=== PATIENT | female | born 1980 | race Hispanic/Latino ===

== ENCOUNTER 2025-05-13 13:24 | Emergency (ER) | payer BC ==
[~2025-05-13] VITALS: Ht 170.2 cm; Wt 93.0 kg
--- NOTE | 2025-05-13 13:50 | EKG ---
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
--- NOTE | 2025-05-13 13:53 | ERN ---
ED Note History of Present Illness Stated Complaint: VAGINAL BLEEDING Chief Complaint: Vaginal Problems/Bleeding Time Seen by MD: 13:26 Time Seen by Midlevel: 13:30 Dictation: 44-year-old female with a history of heavy menses coming in with complaints in the vaginal bleeding. Patient states her doctor put her on the Depo shot two weeks ago, states she has been bleeding but today she has a more than usual. Patient states since this morning she has a change her pads 5 times. Patient states he feels lightheaded, dizzy and has palpitations. Allergies: Coded Allergies: No Known Allergies (Unverified Allergy, Unknown, 05/13/25) Past Medical History Past Medical History: Anemia, Diabetes-Type II Surgical History: None Review of System Dictation Constitutional: Negative for fever,chills, and weight loss Eyes: Negative for injury, pain,redness, and discharge ENT: Negative for injury,pain or swelling Cardiovascular: Negative for chest pain, palpitations, and edema Respiratory: Negative for shortness of breath, cough, and wheezing, Abdomen/GI: Negative for abdominal pain, nausea, vomiting, diarrhea, and constipation Back: Negative for injury and pain : Negative for injury, complaining of vaginal bleeding MS/Extremity: Negative for injury and deformity Skin: Negative for rash, and discoloration Neuro: Negative for headache, weakness, numbness, tingling, and seizure Psych: Negative for suicide ideation, homicidal ideation, and hallucinations Review of Systems: was completed Initial Vital Sign VS Vital Signs Date Time Temp Pulse Resp B/P (MAP) Pulse Ox O2 Delivery O2 Flow Rate FiO2 05/13/25 13:25 98.1 112 20 147/85 98 Room Air 05/13/25 13:55 0 21 Physical Exam Dictation General: awake, alert, NAD Head/Face: Normocephalic, atraumatic Eyes: PERRL, EOMI, vision at baseline ENT: oral cavity clear, TMs clear, no signs of infection Neck: Trachea midline, supple, no nuchal rigidity Cardiovascular: RRR, normal S1/S2, No MRGs, no JVD Respiratory: CTAB, no respiratory distress, No rales or wheezes Abdomen: Soft, non-tender, non-distended, normal bowel sounds, no guarding or rebound. Skin: Warm, dry, normal turgor, no rash MS/Extremity: Pulses equal, no cyanosis, neurovascular intact, FROM Neuro: COAx4, GCS 15, strength 5/5, CN 2-12 intact, normal cerebellar exam, normal gait, Psych: Normal behavior, mood, and affect normal Results (Laboratory/Radiology) Laboratory/Radiology Laboratory Tests Test 05/13/25 14:10 05/13/25 14:14 05/13/25 15:19 Urine Color RED (YELLOW) H Urine Appearance TURBID (CLEAR) H Urine pH 6.5 (5.0-8.0) Urine Specific [place] 1.020 (1.001-1.031) Urine Protein >=300 mg/dL (NEGATIVE) H Urine Glucose (UA) 500 mg/dL (NEGATIVE) H Urine Ketones 15 mg/dL (NEGATIVE) H Urine Occult Blood LARGE (NEGATIVE) H Urine Nitrate POSITIVE (NEGATIVE) H Urine Bilirubin SMALL mg/dL (NEGATIVE) H Urine Urobilinogen 4.0 mg/dL (0.2-1.0) H Urine Leukocyte Esterase MODERATE [place]/uL Urine RBC TNTC /HPF (0-1) H Urine WBC 26-50 /HPF (0-1) H Urine Bacteria Few /HPF (None Seen) White Blood Count 8.2 K/uL (4.8-10.8) Red Blood Count 4.45 MIL/uL (4.00-5.50) Hemoglobin 10.6 g/dL (12.0-16.0) L 10.1 g/dL (12.0-16.0) L Hematocrit 34.2 % (36-48) L 32.2 % (36-48) L Mean Corpuscular Volume 76.9 fL (79-99) L Mean Corpuscular Hemoglobin 23.8 pg (27.0-33.0) L Mean Corpuscular Hemoglobin Concent 31.0 g/dL (32.0-36.0) L Red Cell Distribution Width 14.9 % (11.0-15.5) Platelet Count 349 K/uL (130-400) Mean Platelet Volume 9.6 fL (7.5-10.5) Immature Granulocyte % (Auto) 0.4 % (0-1) Neutrophils (%) (Auto) 63.2 % (40.0-77.0) Lymphocytes (%) (Auto) 27.9 % (21.0-51.0) Monocytes (%) (Auto) 6.2 % (3.0-13.0) Eosinophils (%) (Auto) 1.6 % (0.0-8.0) Basophils (%) (Auto) 0.7 % (0.0-5.0) Neutrophils # (Auto) 5.2 K/uL (1.8-7.7) Lymphocytes # (Auto) 2.3 K/uL (1.0-4.8) Monocytes # (Auto) 0.5 K/uL (0.1-1.0) Eosinophils # (Auto) 0.13 K/uL (0.00-0.70) Basophils # (Auto) 0.06 K/uL (0.00-0.20) Absolute Immature Granulocyte (auto 0.03 K/uL (0-1) Nucleated Red Blood Cells 0.0 % (0.0-0.19) Red Blood Cell Morphology See comments Sodium Level 132 mmol/L (136-145) L Potassium Level 3.5 mmol/L (3.5-5.1) Chloride Level 99 mmol/L (101-111) L Carbon Dioxide Level 24 mmol/L (21-32) Blood Urea Nitrogen 15 mg/dL (7-18) Creatinine 0.8 mg/dL (0.5-1.0) Glomerular Filtration Rate Calc 94 mL/min (>90) Random Glucose 160 mg/dL (70-105) H Total Calcium 8.5 mg/dL (8.5-10.1) Serum Test, Qualitative NEGATIVE (NEGATIVE) Labs Reviewed?: Yes ED Course ED Course Orders Procedure Category Date Status Time Cbc With Differential LAB 05/13/25 Complete 13:35 Basic Metabolic Panel LAB 05/13/25 Complete 13:35 Testing, LAB 05/13/25 Complete Serum Hcg 13:35 Urinalysis Profile LAB 05/13/25 Complete 13:35 12 Lead Ekg Tracing- EKG 05/13/25 Complete Technical 13:35 Us Pelvic Non-Ob Comp US 05/13/25 Taken 13:35 Lactated Ringers PHA 05/13/25 Complete 1000ml (Lactated 14:34 H&H Prn For Bleeding CPOE 05/13/25 Transmitted 15:08 Ondansetron 4mg Inj PHA 05/13/25 Complete (Zofran 4mg Inj) 15:30 Morphine 2mg Syg PHA 05/13/25 Complete (Morphine 2mg Syg) 15:30 Culture Urine LEBRON 05/13/25 In Process 15:28 Acetaminophen 500mg PHA 05/13/25 Complete Tab (Tylenol 500mg T 16:00 Hemoglobin And LAB 05/13/25 Complete Hematocrit 15:52 Ceftriaxone 1g Vial PHA 05/13/25 Logged (Rocephine 1g Inj) 16:30 Current Medications Medications (Trade) Dose Ordered Sig/Estuardo Route PRN Reason Start Time Stop Time Status Last Admin Dose Admin Acetaminophen (TYLenol 500MG TAB) 1,000 mg ONCE ONCE PO 05/13/25 16:00 05/13/25 16:01 DC 05/13/25 15:59 Ceftriaxone Sodium (ROCEphine 1G INJ) 1 gm ONCE ONCE IVPB 05/13/25 16:30 05/13/25 16:31 UNV Lactated Ringer's 1,000 ml @ 1,000 mls/hr Q1H STAT IV 05/13/25 14:34 05/13/25 15:33 DC 05/13/25 15:57 Morphine Sulfate (morPHINE 2MG SYG) 2 mg ONCE ONCE IVP 05/13/25 15:30 05/13/25 15:32 DC Ondansetron HCl (zoFRAN 4MG INJ) 4 mg ONCE ONCE IVP 05/13/25 15:30 05/13/25 15:32 DC Vital Signs Date Time Temp Pulse Resp B/P (MAP) Pulse Ox O2 Delivery O2 Flow Rate FiO2 05/13/25 15:59 99.7 05/13/25 13:55 99.7 91 18 131/85 99 Room Air* 0 21 05/13/25 13:25 98.1 112 20 147/85 98 Room Air Medical Decision Making MDM MDM: 44-year-old female with a history of heavy menses coming in with complaints in the vaginal bleeding. Patient states her doctor put her on the Depo shot two weeks ago, states she has been bleeding but today she has a more than usual. Patient states since this morning she has a change her pads 5 times. Patient states he feels lightheaded, dizzy and has palpitations. 1409, vaginal exam done with the speculum. There is a scant amount of blood noted in the vaginal canal with no clots no lacerations. CBC shows no leukocytosis, hemoglobin of 10 and hematocrit of 34, no thrombocytopenia. Repeat H&H to his done at his hemoglobin of 10.1 and hematocrit of 32. Chemistry showing mild hyponatremia at 1:32 a.m., normal kidney function. test negative. 1 L of LR coming in the ER. UA shows evidence of urinary tract infection, and hematuria however more than likely with a your vaginal area since the urine was a clean catch. Ultrasound shows a swollen here multiple small fibroids. Discussed this with the patient in the need to follow up outpatient with the OBGYN. Patient we will be given Rocephin in the ER and we will be discharged with the antibiotics and follow up with the OBGYN on Thursday. Differential diagnosis: Anemia, menorrhagia, medication side effect Rationale: Tests considered and ordered secondary to shared decision making include: Previous outside records reviewed: Old ER visits. Risk of complication and/or morbidity or mortality of patient management: None Medications-Per medication reconciliation Need for hospitalization: Patient does not meet criteria for hospitalization. Need for emergency major/minor surgery: No There are no social concerns with this patient. Prescription drug management Prescriptions will include symptomatic care Patient's prior external medical records from other ER visits were reviewed by me as indicated. Prior testing and results from previous visits were reviewed. Prior tests were taken into account with medical decision making and resource utilization, independent historian/historians were used to obtain complete medical history. I independently interpreted the test that were performed, results were reviewed by me and considered findings on radiology if ordered. Medical management and examination interpretation discussions were had by me with other qualified healthcare professionals as indicated for the patient's care. DX & DISP Disposition: Discharge Departure Impression: Primary Impression: Abnormal uterine bleeding Additional Impressions: Anemia, Fibroids Condition: Stable Scripts Nitrofurantoin Macrocrystal (Nitrofurantoin) 100 Mg Capsule 1 CAP PO BID for 7 Days, #14 CAP 0 Refills Prov: CLAUDIA MOSCOSO CNP 05/13/25 Additional Instructions: You also has a urinary tract infection. Antibiotics was given here in the ER you will get a prescription for that. However still follow up with the OBGYN on Thursday. Return to the hospital if you have any worsening symptoms. Referrals: SELF,REFERRAL (PCP) Time of Disposition: 16:26 I have reviewed the case, and I agree with, Diagnosis and Plan CLAUDIA MOSCOSO CNP May 13, 2025 13:53
--- NOTE | 2025-05-13 14:04 | NUR ---
PENDING TEST RESULTS FOR CT EXAM. Addendum: 05/13/25 at 1407 by ANSLEY EVANS DISREGARD NOTE
--- NOTE | 2025-05-13 14:15 | NUR ---
PELVIC EXAMINATION DONE BY CLAUDIA Cordero NP
[2025-05-13 14:20] LABS: IMMATURE GRANULOCYTE ABSOLUTE 0.03 K/uL (0-1); NUCLEATED RED BLOOD CELLS 0.0 % (0.0-0.19); PLATELET COUNT (AUTO) 349 K/uL (130-400); RED BLOOD CELL COUNT(AUTO) 4.45 MIL/uL (4.00-5.50); RED CELL DISTRIBUTION WIDTH 14.9 % (11.0-15.5); WHITE BLOOD COUNT (AUTO) 8.2 K/uL (4.8-10.8)
[2025-05-13 14:33] LABS: CREATININE 0.8 mg/dL (0.5-1.0); GLOMERULAR FILTR. RATE CALC 94.0 mL/min (>90); GLUCOSE,RANDOM 160.0 mg/dL (70-105); SODIUM SERUM 132.0 mmol/L (136-145); UREA NITROGEN, BLOOD 15.0 mg/dL (7-18)
[2025-05-13 15:26] LABS: GLUCOSE, URINE (UA) 500 mg/dL (NEGATIVE); LEUKOCYTE ESTERASE ,URINE MODERATE Leu/uL (NEGATIVE); NITRATE,URINE POSITIVE (NEGATIVE); OCCULT BLOOD,URINE LARGE (NEGATIVE)
[2025-05-13 15:28] LABS: ADD UA MICROSCOPIC YES; APPEARANCE,URINE TURBID (CLEAR)
[2025-05-13] MEDS: LACTATED RINGERS 1000ML 1,000 ML IV STA (15:57)
--- NOTE | 2025-05-13 16:22 | HMCIMG ---
EXAM: US Pelvis, Complete Transvaginal and Transabdominal COMPARISON: None provided. CLINICAL HISTORY: vaginal bleeding, pelvic pain TECHNIQUE: Transvaginal and transabdominal pelvic ultrasound (complete) with image documentation. FINDINGS: The uterus is retroverted and measures 8.5 x 5.3 x 5.9 cm in craniocaudal, AP, and transverse dimensions respectively. The endometrium measures 0.5 cm. Complex calcified fibroid within the anterior superior body measures 1.0 x 0.9 x 1.1 cm, fibroid within the posterior superior body measures 1.2 x 1.0 x 1.2 cm. Subserosal fibroid at the fundus measures 1.2 x 1.0 x 1.2 cm. Incidental note of 2 nabothian cysts. The right ovary measures 2.1 x 1.2 x 1.7 cm, and the left ovary measures 1.8 x 1.4 x 2.1 cm. Bilateral ovarian blood flow is documented. There is no free fluid within the cul-de-sac. IMPRESSION: 1. Multiple uterine fibroids, largest measuring 1.2 x 1.0 x 1.2 cm. 2. No acute pelvic findings. /[place]
[2025-05-13] MEDS ORDERED: NITR100C PO (16:26)
[2025-05-13 16:59] VITALS: TEMP 99.7
[2025-05-13 17:00] VITALS: BP 124/69; PULSE 82; RESP 18; TEMP 99.2; O2SAT 94
== END 2025-05-13 17:54 | disposition home or self-care (01) ==
LOC: EDH 13:24
DX: D25.9 Leiomyoma of uterus, unspecified (principal); N93.8 Other specified abnormal uterine and vaginal bleeding; D64.9 Anemia, unspecified; E11.9 Type 2 diabetes mellitus without complications; R00.2 Palpitations
CPT/HCPCS: 99284; 96374; 76856; 96361; 80048; 84703; 85025; 87086; 81001; 36415; 93005; 85014; 85018; J7120; J0696